=== PATIENT | male | born 1955 | race Caucasian/White ===

== ENCOUNTER → 2017-01-20 | Outpatient (CLI) | payer BC ==
--- NOTE | 2017-01-20 08:21 | RADRPT ---
PROCEDURE: US Abdomen and Retroperitoneum. CLINICAL INDICATION: Jaundice. TECHNIQUE: Multiple real-time longitudinal and transverse images were acquired of the patient's ab domen and retroperitoneum utilizing a curved array transducer. COMPARISON: None. FINDINGS: Liver demonstrates mild parenchymal heterogeneity with areas of increased echogenicity. No focal li joe mass. Portal vein demonstrates hepatopetal flow. The contracted gallbladder demonstrates no obvious stones. There is no gallbladder wall thickening or pericholecystic fluid. There is no intrahepatic bile duct dilatation. Common bile is poorly vis ualized. Pancreas is partially visualized and grossly unremarkable. Spleen is normal in size. No hydronephrosis or nephrolithiasis. No ascites. Proximal aorta and IVC are unremarkable. MEASUREMENTS: Liver: 16.3 cm Right Kidney: 5.8 cm Left Kidney: 10.8 cm Spleen: 10.8 cm IMPRESSION: Mild heterogeneity in parenchymal echotexture with areas of increased echogenicity within the liver suggestive of steatotic change. The pancreas and extrahepatic biliary system are poorly visualized and/or evaluated. Recommend MRI of the abdomen with and without contrast for further assessment of patient's jaundice. Asymmetric volume loss of the right kidney. No hydronephrosis is seen bilaterally. RPTAT: EE .Tesfaye Posadas MD, MD Date Time Electronically viewed and signed by .Tesfaye Posadas MD, on 01/20/2017 08:26 .C/
== END | disposition home or self-care (01) ==
LOC: U/S 07:24
PROVIDERS: ATTEND Internal Medicine
DX: R17 Unspecified jaundice (principal)
CPT/HCPCS: 76700